=== PATIENT | female | born 1985 | race Caucasian/White ===

== ENCOUNTER 2016-10-13 16:40 | Inpatient (IN) | payer MEDICAID ==
[2016-10-13] MEDS ORDERED: LACTATED RINGER'S 1000 ML INJ 1,000 ML IV PRN (16:54)
[2016-10-13] MEDS ORDERED: LACTATED RINGER'S 1000 ML INJ 1,000 ML IV SCH (16:54)
[2016-10-13] MEDS ORDERED: SODIUM CHLORID 0.9% 500 ML INJ 500 ML IV PRN (17:00)
[2016-10-13] MEDS ORDERED: CITRIC ACID-SODIUM CITRATE LIQ 30 ML UDC PO SCH (17:00)
[2016-10-13] MEDS ORDERED: MINERAL OIL 10 ML VIAL TOPICAL PRN (17:00)
[2016-10-13] MEDS ORDERED: LIDOCAINE HCL 1% 50 ML VIAL I-DERMAL PRN (17:00)
[2016-10-13] MEDS ORDERED: OXYTOCIN 30 UNITS-500ML PREMIX 500 ML IV ONE (17:00)
[2016-10-13] MEDS ORDERED: LIDOCAINE HCL 1% 50 ML VIAL INFIL PRN (17:00)
--- NOTE | 2016-10-13 17:01 | HHI.HP ---
History & Physical H&P HPI Chief Complaint Contractions Date Seen: Oct 13, 2016 Travel History International Travel<30 Days: No Contact w/Intl Traveler<30Days: No History of Present Illness HPI 30 year old at 38-1/7 weeks gestation who presents today for contractions. care with [facility]. No vaginal bleeding but she is having leaking fluid since 3AM. Contractions have been getting closer together and are painful. Positive movement. History (Limited) History Past Medical History Medical History: Denies Significant Hx Obstetric History Obstetric History x 2 Past Surgical History Surgical History: No Previous Surgery Family History Family History: Negative Social History Alcohol Use: No Tobacco Use: No Substance Abuse: No Allergies-Medications Allergies-Medications (Allergen,Severity, Reaction): Coded Allergies: No Known Allergies (Unverified , 10/08/16) Home Meds Discontinued Scripts Terconazole Vaginal Cream (Terazol 7 Vaginal Cream) 0.4 % Cream, 1 APPL VAGINAL HS for Fungal Infection, #45 GM 0 Refills 1 applicatorful intravaginally x 7 nights Prov:Dorian Roque MD 09/22/16 Metronidazole (Flagyl) 500 Mg Tab, 1000 MG PO DAILY@0600 for Infection, #8 TAB 0 Refills Prov:Dorian Roque MD 09/22/16 ROS Review of Systems Except as stated in HPI: all other systems reviewed are Neg General / Constitutional: No: Fever, Chills Eyes: No: Blurred Vision, Visual changes HENT: No: Headaches Cardiovascular: No: Chest Pain or Discomfort Respiratory: No: Short of Breath Gastrointestinal: No: Abdominal Pain Genitourinary: Pelvic Pain, Discharge, No: Dysuria, Hematuria, Vaginal Bleeding Musculoskeletal: No: Edema Psychiatric: No: Substance Abuse Physical Exam Physical Exam Narrative GENERAL: Well-nourished, well-developed patient. SKIN: Warm and dry. HEAD: Normocephalic and atraumatic. EYES: No scleral icterus. No injection or drainage. ENT: No nasal drainage noted. Mucous membranes pink. Airway patent. NECK: Supple, trachea midline. No JVD. CARDIOVASCULAR: Regular rate and rhythm without murmurs, gallops, or rubs. RESPIRATORY: Breath sounds equal bilaterally. No accessory muscle use. ABDOMEN/GI: Abdomen soft, non-tender, bowel sounds present, no rebound, no guarding Gravid to 38 weeks size GENITOURINARY: External Genitalia: intact and normal in appearance BUS glands: normal Cervix: posterior Dilatation: 5 Effacement: 50 Station: -2 Presentation: vertex Membranes: SROM, clear fluid Uterine Contractions: q5min FHT's: Category: I Baseline: 140 Reactive: + Variability: moderate Decels: none EXTREMITIES: No cyanosis or edema. BACK: Nontender without obvious deformity. No CVA tenderness. NEUROLOGICAL: Awake and alert. Motor and sensory grossly within normal limits. Normal speech. Data Data Data Vital Signs Reviewed: Yes Orders Orders Ob (2e) Additional Admit Info (10/13/16 16:50) Vital Signs (Adult) .ON ADMISSION (10/13/16 16:54) ^ Labor Status (10/13/16 16:54) ^ Non Stress Test (10/13/16 16:54) ^ Hydration (10/13/16 16:54) Admit To Inpatient (10/13/16 ) Code Status (10/13/16 16:54) Vital Signs (Adult) .Per protocol (10/13/16 16:54) Activity Oob Ad Idania (10/13/16 16:54) Heart (10/13/16 16:54) Amnioinfusion (10/13/16 16:54) Urinary Catheter Management .ONCE (10/13/16 16:54) Diet Liquid (10/13/16 Dinner) Lactated Ringer's 1000 Ml Inj (Lr 1000 M (10/13/16 16:54) Lactated Ringer's 1000 Ml Inj (Lr 1000 M (10/13/16 16:54) Sodium Chlorid 0.9% 500 Ml Inj (Ns 500 M (10/13/16 17:00) Sodium Chlor 0.9% 1000 Ml Inj (Ns 1000 M (10/13/16 17:14) Lidocaine 1% Inj (50 Ml) (Xylocaine 1% I (10/13/16 17:00) Citric Acid-Sodium Citrate Liq (Bicitra (10/13/16 17:00) Fentanyl Inj (Fentanyl Inj) (10/13/16 17:00) Fentanyl Inj (Fentanyl Inj) (10/13/16 17:00) Complete Blood Count With Diff (10/13/16 16:54) Hold Clot (10/13/16 16:54) Abo/Rh Blood Type (10/13/16 16:54) Urinalysis - C+S If Indicated (10/13/16 16:54) Resp Oxygen Non Rebreathe Mask (10/13/16 ) ^ Epidural / Intrathecal Infus (10/13/16 16:54) Oxytocin 30 Units-500ml Premix (Pitocin (10/13/16 17:00) Lidocaine 1% Inj (50 Ml) (Xylocaine 1% I (10/13/16 17:00) Light Mineral Oil (Muri-Lube Oil) (10/13/16 17:00) Inpatient Certification (10/13/16 ) Specimen To Be Collected PRN (10/13/16 16:54) Group B Strep: Negative MDM MDM Medical Record Reviewed: Yes Narrative Course / MDM 30 year old at 38-1/7 weeks gestation. 1. IUP- Category I tracing, reassuring. 2. SROM- amnisure positive. Will admit for labor. Augment with Pitocin PRN. 3. Oligohydramnios on bedside US, vertex presentation. 4. GBS negative. sdw Dr. Morgan and Dr. Negrete R1 Jazmyn Hernandez MD, R3 Oct 13, 2016 17:01
[2016-10-13] MEDS ORDERED: SODIUM CHLOR 0.9% 1000 ML INJ 1,000 ML IV PRN (17:14)
[2016-10-13 17:25] LABS: AUTOMATED NEUTROPHIL # 4.8 TH/MM3 (1.8-7.7); BACTERIA, URINE RARE /hpf; BASOPHIL % 0.5 % (0.0-2.0); BLOOD, URINE NEG (NEG); COMMENT (UR) CULTURE INDICATED; CULTURE IF INDICATED CULTURE INDICATED; EOSINOPHIL # 0.1 TH/MM3 (0-0.4); EOSINOPHIL % 0.9 % (0.0-4.0); GLUCOSE,URINE NEG (NEG); HEMATOCRIT 33.7 % (35.0-46.0); HEMO FLAGS DIFF FINAL; KETONE, URINE NEG (NEG); LYMPH % 22.2 % (9.0-44.0); LYMPHOCYTE # 1.5 TH/MM3 (1.0-4.8); MEAN CELL VOLUME 80.9 FL (80.0-100.0); MEAN CORPUSCULAR HEMOGLOBIN 26.4 PG (27.0-34.0); MEAN CORPUSCULAR HGB CONC 32.6 % (32.0-36.0); NEUT % 71.4 % (16.0-70.0); NITRITE,URINE NEG (NEG); PLATELET COUNT 259 TH/MM3 (150-450); RED BLOOD COUNT 4.17 MIL/MM3 (4.00-5.30); RED CELL DISTRIBUTION WIDTH 15.9 % (11.6-17.2); SQUAMOUS EPITHELIAL CELL URINE 5 /hpf (0-5); URINE COLOR LIGHT-YELLOW (YELLW/STRAW); WHITE BLOOD COUNT 6.8 TH/MM3 (4.0-11.0)
[2016-10-13] MEDS ORDERED: OXYTOCIN 30 UNITS-500ML PREMIX 500 ML IV SCH (17:45)
[2016-10-13] MEDS ORDERED: fentaNYL 2MCG-BUPIV 0.125% INJ 100 ML ONE (17:46)
[2016-10-13] MEDS ORDERED: NO SYSTEM NARCOTICS PRN (19:30)
[2016-10-13] MEDS ORDERED: fentaNYL 2MCG-BUPIV 0.125% 100 ML EPIDURAL SCH (19:30)
[2016-10-13] MEDS ORDERED: ePHEDrine/NS 25 MG/5 ML SYR IV PRN (19:30)
[2016-10-13] MEDS ORDERED: DO NOT ADMINISTER ANTICOAGULANTS PRN (19:30)
[2016-10-13] MEDS ORDERED: GENTAMICIN INJ 80 MG in SODIUM CHLORIDE 0.9% INJ 100 ML IV SCH (23:45)
[2016-10-13] MEDS ORDERED: ACETAMINOPHEN 325 MG TAB PO ONE (23:45)
[2016-10-14] MEDS ORDERED: GENTAMICIN/SOD CHL 80 MG/100 ML IV SCH
[2016-10-14] MEDS ORDERED: AMPICILLIN INJ 2,000 MG in SODIUM CHLORIDE 0.9% INJ 100 ML IV SCH ×2
--- NOTE | 2016-10-14 00:02 | PD.OB.DELI ---
Weeks gestation: 38 Gest age assessed date: Oct 13, 2016 Gest age assessed time: 23:47 Pt started active labor?: Yes Medical induction of labor?: No Artificial rupture of membrane: No Anesthesia: Epidural Episiotomy: None Vaginal Delivery: Normal Presentation: Occiput anterior Nuchal Cord: None Delayed cord clamping (45 sec): No Infant: Female Delivery date: Oct 13, 2016 Delivery time: 23:47 One Minute : 9 Five Minute : 9 Weight: 3230 Placenta: Spontaneous delivery, Intact, Uterus explored + Laceration: No lacerations Additional Information pt spiked a temp of 102 deg right at delivery IV Amp & Gent ordered but not given prior to . placenta cultured after delivery Nicholas Morgan II, MD Oct 14, 2016 00:02
[2016-10-14 00:04] LABS: BLOOD GAS BASE EXCESS -1.5 mmol/L (-2-2); BLOOD GAS O2 HGB SATURATION 63 % (90-100); CORD BLOOD GAS HCO3 23 mmol/L (21-29); CORD BLOOD GAS PCO2 42 mmHG (34-78); CORD BLOOD GAS PH 7.36 (7.14-7.42); CORD BLOOD GAS PO2 29 mmHG (3.0-40.0); DRAW SITE CORD BLOOD; STAT YES
[2016-10-14] MEDS ORDERED: OXYTOCIN 30 UNITS-500ML PREMIX 500 ML IV SCH (00:15)
[2016-10-14] MEDS ORDERED: WITCH HAZEL 50%/GLYCERIN 12.5% 40 PAD JAR TOPICAL PRN (00:15)
[2016-10-14] MEDS ORDERED: DOCUSATE SODIUM 50 MG/SENNA 8.6 MG TAB PO PRN (00:15)
[2016-10-14] MEDS ORDERED: ACETAMINOPHEN 325 MG TAB PO PRN (00:15)
[2016-10-14] MEDS ORDERED: SODIUM CHLORIDE 0.9% FLUSH 10 ML FLUSH IV FLUSH PRN (00:15)
[2016-10-14] MEDS ORDERED: ZOLPIDEM TARTRATE 5 MG TAB PO PRN (00:15)
[2016-10-14] MEDS ORDERED: BENZOCAINE 20% TOPICAL SPRAY 60 ML CAN TOPICAL PRN (00:15)
[2016-10-14] MEDS ORDERED: ONDANSETRON ODT 4 MG TAB PO PRN (00:15)
[2016-10-14] MEDS ORDERED: ALUMINUM/MAGNESIUM/SIMETH 30 ML CUP PO PRN (00:15)
[2016-10-14] MEDS: AMPICILLIN INJ 2,000 MG in SODIUM CHLORIDE 0.9% INJ 100 ML IV SCH ×4 (01:00→19:54)
[2016-10-14] MEDS: GENTAMICIN/SOD CHL 80 MG/100 ML IV SCH ×3 (01:30→17:08)
[2016-10-14] MEDS ORDERED: OXYTOCIN 30 UNITS-500ML PREMIX 500 ML IV ONE (02:30)
[2016-10-14] MEDS ORDERED: METHYLERGONOVINE MALEATE 0.2 MG/ML VIAL ONE (03:43)
[2016-10-14] MEDS: IBUPROFEN 600 MG TAB PO PRN (06:10)
[2016-10-14] MEDS: SODIUM CHLORIDE 0.9% FLUSH 10 ML FLUSH IV FLUSH SCH (08:06)
--- NOTE | 2016-10-14 08:25 | HHI.OB ---
Subjective Post Day: 1 Remarks day # 1 AFVSS overnight. Decreased lochia. Denies dysuria. No breast tenderness. She is feeding the baby via bottle. Appetite good. No nausea or vomiting. Ambulating well. Denies calf pain or shortness of breath. Otherwise, she is doing well this morning and has no other complaints. Objective Objective Remarks GENERAL: Well-nourished, well-developed patient. CARDIOVASCULAR: Regular rate and rhythm without murmurs, gallops, or rubs. RESPIRATORY: Breath sounds equal bilaterally. No accessory muscle use. ABDOMEN/GI: Abdomen soft, non-tender. Fundus: Firm, non-tender at umbilicus. GENITOURINARY: Light to moderate bleeding. EXTREMITIES: No cyanosis or edema, non-tender, without signs of DVT. Medications and IVs Current Medications Medications (Trade) Dose Ordered Sig/Latosha Route Start Time Stop Time Status Last Admin (NS Flush) 2 ml BID IV FLUSH 10/14/16 09:00 10/14/16 08:06 (NS Flush) 2 ml UNSCH PRN IV FLUSH 10/14/16 00:15 (Tylenol) 650 mg Q4H PRN PO 10/14/16 00:15 10/14/16 06:10 (Motrin) 600 mg Q6H PRN PO 10/14/16 00:15 10/14/16 06:10 (Americaine 20% Top Spr) 1 spray Q4H PRN TOPICAL 10/14/16 00:15 (Tucks Pads) 1 applic QID PRN TOPICAL 10/14/16 00:15 (Briana-Colace) 2 tab Q12H PRN PO 10/14/16 00:15 (Ambien) 5 mg HS PRN PO 10/14/16 00:15 (M-M-R Ii Inj) 0.5 ml ONCE ONCE SQ 10/14/16 16:00 10/14/16 16:01 (Boostrix Inj) 0.5 ml ONCE ONCE IM 10/14/16 16:00 10/14/16 16:01 (Mag-Al Plus Susp Liq) 15 ml Q8H PRN PO 10/14/16 00:15 (Zofran Odt) 4 mg Q6H PRN PO 10/14/16 00:15 Ampicillin Sodium 2000 mg/Sodium Chloride 100 ml @ 400 mls/hr Q6H IV 10/14/16 01:00 10/14/16 07:58 Gentamicin Sulfate/Sodium Chloride 100 ml @ 200 mls/hr Q8H IV 10/14/16 01:00 10/14/16 01:30 Assessment/Plan Assessment and Plan 30 y/o female who is PPD# 1 s/p . -Continue routine care. -Motrin PRN pain. -Encouraged OOB. Advised pelvic rest for 6 wks. -Re: ctrl, she would like to continue thinking about it. -D/c in 1-2 more days. alexa Morgan, Jordi Garza MD R1 Oct 14, 2016 08:25
[2016-10-14] MEDS ORDERED: MEASLES, MUMPS, RUBELLA VACCINE 0.5 ML VIAL SQ ONE (16:00)
[2016-10-14] MEDS ORDERED: DIPHTH/TETANUS/ACEL PERTUSSIS (BOOSTER) 0.5 ML VIAL/PFS IM ONE (16:00)
[2016-10-15] MEDS: AMPICILLIN INJ 2,000 MG in SODIUM CHLORIDE 0.9% INJ 100 ML IV SCH ×2 (02:00→07:06)
[2016-10-15] MEDS: GENTAMICIN/SOD CHL 80 MG/100 ML IV SCH (02:00)
[2016-10-15] MEDS: SODIUM CHLORIDE 0.9% FLUSH 10 ML FLUSH IV FLUSH SCH (02:03)
[2016-10-15] MEDS ORDERED: SODIUM CHLOR 0.9% 1000 ML INJ 1,000 ML IV ONE (03:15)
[2016-10-15] MEDS: IBUPROFEN 600 MG TAB PO PRN (06:37)
[2016-10-15] MEDS ORDERED: IBUP-232 PO (06:41)
[2016-10-15] MEDS ORDERED: PERI8.6T PO (06:41)
--- NOTE | 2016-10-15 06:41 | HHI.OB ---
Subjective Remarks PPD day # 2. No acute issues overnight, vitals are stable, patient remains afebrile. Decreasing lochia and pain. Patient is ambulating without difficulty and voiding independently. She is feeding the baby via breast/formula. She denies any nausea or vomiting and has a good appetite. Positive flatus/bowel movement. She denies any calf pain, chest pain, or shortness of breath. She is bonding well with . Objective Objective Remarks GENERAL: Well-nourished, well-developed patient. CARDIOVASCULAR: Regular rate and rhythm without murmurs, gallops, or rubs. RESPIRATORY: Breath sounds equal bilaterally. No accessory muscle use. ABDOMEN/GI: Abdomen soft, non-tender. Fundus: Firm, non-tender at umbilicus. GENITOURINARY: Light to moderate bleeding. EXTREMITIES: No cyanosis or edema, non-tender, without signs of DVT. Medications and IVs Current Medications Medications (Trade) Dose Ordered Sig/Latohsa Route Start Time Stop Time Status Last Admin (NS Flush) 2 ml BID IV FLUSH 10/14/16 09:00 10/15/16 02:03 (NS Flush) 2 ml UNSCH PRN IV FLUSH 10/14/16 00:15 10/15/16 02:04 (Tylenol) 650 mg Q4H PRN PO 10/14/16 00:15 10/14/16 06:10 (Motrin) 600 mg Q6H PRN PO 10/14/16 00:15 10/15/16 06:37 (Americaine 20% Top Spr) 1 spray Q4H PRN TOPICAL 10/14/16 00:15 (Tucks Pads) 1 applic QID PRN TOPICAL 10/14/16 00:15 (Briana-Colace) 2 tab Q12H PRN PO 10/14/16 00:15 (Ambien) 5 mg HS PRN PO 10/14/16 00:15 (Mag-Al Plus Susp Liq) 15 ml Q8H PRN PO 10/14/16 00:15 (Zofran Odt) 4 mg Q6H PRN PO 10/14/16 00:15 Ampicillin Sodium 2000 mg/Sodium Chloride 100 ml @ 400 mls/hr Q6H IV 10/14/16 01:00 10/15/16 02:00 Gentamicin Sulfate/Sodium Chloride 100 ml @ 200 mls/hr Q8H IV 10/14/16 01:00 10/15/16 02:00 Assessment/Plan Problem List: (1) Vaginal delivery ICD Codes: O80 - Encounter for full-term uncomplicated delivery Status: Acute Assessment and Plan 30 y/o female who is PPD# 2 s/p . -Continue routine care. -Motrin PRN pain. -Encouraged OOB. Advised pelvic rest for 6 wks. -Re: ctrl, she would like to continue thinking about it. -D/c today. Jazmyn Ca Dr., MD, R3 Oct 15, 2016 06:41
--- NOTE | 2016-10-15 06:42 | HHI.DCPOC ---
Discharge Care Plan Diagnosis: (1) Vaginal delivery Report Symptoms to Your Doctor -Temperature above 100.5 degrees -Redness, of incision or excessive or foul smelling drainage -Unusual pain or calf pain -Increased vaginal bleeding -Painful or difficulty urinating -Feelings of extreme sadness or anxiety after 2 weeks Goals to Promote Your Health * To prevent worsening of your condition and complications * To maintain your health at the optimal level Directions to Meet Your Goals Take your medications as prescribed Follow your dietary instruction Follow activity as directed Ensure plenty of rest for recovery Drink fluids for hydration Keep your appointments as scheduled Take your immunizations and boosters as scheduled If your symptoms worsen call your PCP, if no PCP go to Urgent Care Center or Emergency Room Smoking is Dangerous to Your Health. Avoid second hand smoke Call the 24-hour crisis hotline for domestic abuse at Jazmyn Hernandez MD, R3 Oct 15, 2016 06:42
[2016-10-15 10:26] LABS: HEMATOCRIT 33.8 % (35.0-46.0); MEAN CELL VOLUME 81.3 FL (80.0-100.0); MEAN CORPUSCULAR HEMOGLOBIN 25.2 PG (27.0-34.0); PLATELET COUNT 235 TH/MM3 (150-450); RED BLOOD COUNT 4.16 MIL/MM3 (4.00-5.30); REVIEW FLAG FINAL; WHITE BLOOD COUNT 14.3 TH/MM3 (4.0-11.0)
[2016-11-26] MEDS ORDERED: DEPO150I IM (11:49)
== END 2016-10-15 11:41 | disposition home or self-care (01) | DRG 775 ==
LOC: HOBED 16:40 → H2EB 16:53 → H1EA 10-14 05:11
PROVIDERS: ADMIT Obstetrics & Gynecology Maternal & Fetal Medicine; ATTEND Obstetrics & Gynecology Maternal & Fetal Medicine
PROC: 10E0XZZ Delivery of Products of Conception, External Approach (ICD-10-PCS; principal; 2016-10-14)
DX: O41.03X0 Oligohydramnios, third trimester, not applicable or unspecified (principal); Z37.0 Single live birth; Z3A.38 38 weeks gestation of pregnancy
CPT/HCPCS: 76815; 81001; 82805; 84112; 85025; 85027; 86900; 86901; 87015; 87070; 87086; 87185; 88307; 90715; J0290; J1580; J2210; J2590; J7030; J7120